=== PATIENT | female | born 1965 | race African-American/Black ===

== ENCOUNTER 2018-10-06 14:56 | Emergency (ER) | payer MEDICARE, MEDICAID ==
[2018-10-06 15:24] VITALS: BP 177/84
--- NOTE | 2018-10-06 17:08 | EKG REPORT ---
SEVERITY:- ABNORMAL ECG - SINUS RHYTHM FIRST DEGREE AV BLOCK ABNORMAL T, CONSIDER ISCHEMIA, LATERAL LEADS : Confirmed by: Boris Zhao MD 06-Oct-2018 17:08:12
--- NOTE | 2018-10-06 17:59 | ER Document Report ---
ED Medical Screen (RME) - General Chief Complaint: Dialysis Catheter Problem Stated Complaint: URINARY ISSUES Time Seen by Provider: 10/06/18 17:18 Notes: Patient is a 53-year-old female with end-stage renal disease on dialysis that presents to the emergency department for chief complaint of missing dialysis, last session was on the fifth of this month, she states she has been going from different emergency departments every few weeks to get a dialysis session, she does not currently have scheduled dialysis. ROS: Other than noted above, the 12 point review of systems was reviewed with the patient and were negative, all pertinent findings are included in the HPI. PHYSICAL EXAMINATION: Vital signs reviewed. GENERAL: Well-appearing, well-nourished and in no acute distress. HEAD: Atraumatic, normocephalic. EYES: Pupils equal round extraocular movements intact, conjunctiva are normal. ENT: Nares patent NECK: Normal range of motion CV: Heart regular rate and rhythm LUNGS: No respiratory distress Musculoskeletal: Left forearm graft, positive bruit and thrill NEUROLOGICAL: Normal speech PSYCH: Normal mood, normal affect. MDM: Patient seen and examined for rapid initial assessment. Vital signs reviewed. A comprehensive ED assessment and evaluation of the patient, analysis of test results and completion of the medical decision making process will be conducted by additional ED providers. *Note is created using voice recognition software and may contain spelling, syntax or grammatical errors. TRAVEL OUTSIDE OF THE [place] IN LAST 30 DAYS: No - Related Data Allergies/Adverse Reactions: No Known Allergies Allergy (Unverified 10/06/18 15:00) Past Medical History - Social History Frequency of alcohol use: None Renal/ Medical History: Denies: Hx Peritoneal Dialysis - Previous Physical Exam - Vital signs Vitals: Temp Pulse Resp BP Pulse Ox 97.6 F 81 16 177/84 H 94 10/06/18 15:21 10/06/18 15:21 10/06/18 15:21 10/06/18 15:21 10/06/18 15:21 Course - Vital Signs Vital signs: Temp Pulse Resp BP Pulse Ox 97.6 F 81 16 177/84 H 94 10/06/18 15:21 10/06/18 15:21 10/06/18 15:21 10/06/18 15:21 10/06/18 15:21
== END 2018-10-06 18:16 | disposition left against medical advice (07) ==
LOC: ER 14:56
DX: N18.6 End stage renal disease (principal); Z99.2 Dependence on renal dialysis; Z91.15 Patient's noncompliance with renal dialysis; Z53.20 Procedure and treatment not carried out because of patient's decision for unspecified reasons
CPT/HCPCS: 93005; 93010